=== PATIENT | female | born 1990 | race Caucasian/White ===

== ENCOUNTER → 2023-06-06 11:10 | Outpatient (CLI) | payer MEDICARE, SELFPAY ==
[2023-06-06 19:10] LABS: Basophils # 0.1 K/mm3 (0-0.2); Basophils % 0.8 % (0.1-2.0); Eosinophils # 0.3 K/mm3 (0.0-0.4); Eosinophils % 2.3 % (0.1-12.0); Hematocrit 49.6 % (37.0-47.0); Hemoglobin 15.3 g/dL (12.2-16.2); Lymphocytes # 4.1 K/mm3 (0.7-4.5); Lymphocytes % 37.4 % (10-50); Mean Corpuscular HGB Conc 30.9 g/dL (31.8-35.4); Mean Corpuscular Volume 100.4 fl (81-99); Monocytes # 0.5 K/mm3 (0.1-1.0); Monocytes % 4.7 % (1.7-9.3); Neutrophils # 6.1 K/mm3 (1.8-7.8); Neutrophils % 54.8 % (37.0-80.0); Platelet Count 543 K/mm3 (142-424); Red Blood Count 4.94 M/mm3 (4.20-5.40); Red Cell Distribution Width 13.5 % (11.5-17.5); White Blood Count 11.1 K/mm3 (4.8-10.8)
[2023-06-06 19:23] LABS: Alanine Aminotransferase 71 U/L (12-78); Albumin Level 4.5 g/dl (3.5-5.0); Albumin/Globulin Ratio 1.4 (1.1-1.8); Alkaline Phosphatase 63 U/L (38-126); Aspartate Amino Transferase 56 U/L (14-36); Bilirubin,Total 0.2 mg/dl (0.2-1.3); Blood Urea Nitrogen 13 mg/dl (7-17); Calcium 9.7 mg/dl (8.4-10.2); Carbon Dioxide 27 mmol/L (22.0-30.0); Chloride 101 mmol/L (98-107); Estimated Glomerular Filt Rate 84 ml/min (>60); GFR (African American) 101 ML/MIN (>60); Globulin 3.3 g/dL (1.3-3.2); Glucose 89 mg/dl (74-100); Sodium 138 mmol/L (136-145); Total Protein,Serum 7.8 g/dl (6.3-8.2)
[2023-06-06 19:50] LABS: Thyroid Stimulating Hormone 2.62 uIU/mL (0.465-4.68)
[2023-06-06 20:10] LABS: Vitamin B12 883 pg/mL (239-931)
== END ==
PROVIDERS: PCP Nurse Practitioner; Visit Provider Nurse Practitioner
DX: F31.9 Bipolar disorder, unspecified (principal); R40.0 Somnolence; R60.0 Localized edema
CPT/HCPCS: 85025

== ENCOUNTER → 2023-06-07 13:55 | Outpatient (CLI) | payer MEDICARE, SELFPAY ==
--- NOTE | 2023-06-07 13:56 | US_ITS ---
PROCEDURE INFORMATION: Exam: US Right Breast, Complete MG Right Diagnostic Breast Tomosynthesis Exam date and time: 06/07/2023 2:23 PM Age: 33 years old Clinical indication: Right breast palpable lump; Neoplasm of uncertain behavior of right chest wall TECHNIQUE: Imaging protocol: Complete ultrasound of all four quadrants of the right breast and the retroareolar regions, including ultrasound of the axilla when performed. Right Diagnostic tomosynthesis and 2D mammography including computer-aided detection (CAD) when performed. Unilateral or bilateral exam. COMPARISON: MG MM DIG MAMM DX UNILAT RT CAD 06/07/2023 1:52 PM FINDINGS: MAMMOGRAPHY: The breast tissue is composed of scattered areas of fibroglandular density. There is no stellate mass, architectural distortion or suspicious microcalcifications to suggest malignancy. No skin thickening or axillary adenopathy. ULTRASOUND: Sonographic images of the right breast including the retroareolar region, all 4 quadrants and the axilla do not demonstrate any solid masses. Specifically, there are no focal findings in the right 1 o'clock axis 10 cm from the nipple where the patient reports a palpable abnormality. Predominantly adipose tissue is identified. It has a dental 0.4 cm cyst in the right 3 o'clock axis 2 cm from the nipple. No architectural distortion or acoustical shadowing. No skin thickening or axillary adenopathy. IMPRESSION: Palpable abnormality in the right breast corresponds both mammographically and sonographically to normal fibroglandular structures. There is no mammographic evidence of malignancy. Further evaluation of a palpable abnormality should be based on clinical grounds regardless of radiographic findings or lack thereof. Annual bilateral mammographic screening is recommended to commence at the age of 40 unless otherwise clinically indicated. ASSESSMENT: BI-RADS Category 2: Benign
== END ==
PROVIDERS: PCP Nurse Practitioner Acute Care; Visit Provider Nurse Practitioner
DX: D48.7 Neoplasm of uncertain behavior of other specified sites (principal); R92.8 Other abnormal and inconclusive findings on diagnostic imaging of breast
CPT/HCPCS: 76641; 77061; 77065; G0279

== ENCOUNTER → 2023-07-03 23:14 | Outpatient (CLI) | payer MEDICARE, SELFPAY ==
[2023-07-05 10:53] LABS: Rapid Plasma Reagin Ab Titer Non Reactive titer (NonRea<1:1)
[2023-07-05 11:14] LABS: HIV Screen 4th Generation wRfx Non Reactive (Non Reactive)
[2023-07-05 23:37] LABS: Neisseria gonorrhoeae, NAA Negative (Negative)
[2023-07-07 18:10] LABS: HBsAg Screen Negative (Negative); HCV Ab Reactive (Non Reactive); Hep A Ab, IGM Negative (Negative); Hep B Core Ab, IgM Negative (Negative)
[2023-07-11 12:20] LABS: Trichomonas Vaginalis, NAA Negative
== END ==
LOC: LAB.DROPOF 23:14
PROVIDERS: PCP Nurse Practitioner; Visit Provider Nurse Practitioner
DX: N76.0 Acute vaginitis (principal); Z11.3 Encounter for screening for infections with a predominantly sexual mode of transmission; Z72.51 High risk heterosexual behavior; Z11.4 Encounter for screening for human immunodeficiency virus [HIV]; R30.0 Dysuria; R76.0 Raised antibody titer
CPT/HCPCS: 80074; 86593; 86703; 87491; 87591; 87661; G0432

== ENCOUNTER 2023-10-04 10:06 | Emergency (ER) | payer MEDICAID, SELFPAY ==
--- NOTE | 2023-10-04 10:20 | XR_ITS ---
FINAL REPORT CLINICAL HISTORY: PAIN IN LEFT RIBS FROM COUGHING COMPARISON: None FINDINGS: 5 views of the left ribs including a PA view of the chest were obtained. There is no displaced, acute fracture identified. The visualized lungs are clear. No pneumothorax is identified. IMPRESSION: No displaced rib fracture or pneumothorax identified. Reviewed, Interpreted and Dictated by Ruben Borja III, MD Transcribed by Cheryl Christina Authenticated and [facility]
[2023-10-04 10:22] VITALS: BP 139/86; PULSE 111; RESP 18; TEMP 36.9; O2SAT 96; BMI 35.0
--- NOTE | 2023-10-04 10:35 | PC.NURSE ---
Pt went to RAD
--- NOTE | 2023-10-04 10:56 | ED_ITS ---
Discharge Plan Disposition Patient Disposition: Home, Self-Care Condition: Good Prescriptions Prescriptions: New promethazine-DM 6.25-15 mg/5 mL Syrup 5 ml PO Q6H PRN (Reason: Cough) Qty: 240 0RF methylprednisolone 4 mg Tablets,Dose Pack 4 mg PO DIRECTED 6 Days Qty: 21 0RF Rx Instructions: Take 1 pack as directed for 6 days amoxicillin-pot clavulanate 875-125 mg Tablet 1 tab PO Q12H Qty: 20 0RF guaifenesin [Mucinex] 600 mg tablet extended release 12hr 600 - 1,200 mg PO BIDP PRN (Reason: Congestion) Qty: 30 0RF No Action fluticasone propionate 50 mcg/actuation spray,suspension 1 spray intranasal DAILY Qty: 16 2RF Rx Instructions: administer into each nostril Nurtec ODT 75 mg tablet,disintegrating 75 mg PO Q OTHER DAY PRN (Reason: migraine headache) Qty: 8 0RF hyoscyamine sulfate 0.125 mg tablet 0.125 mg PO QID PRN (Reason: diarrhea or abdominal cramping) Qty: 30 0RF lamotrigine 200 mg tablet 200 mg PO DAILY fluoxetine [Prozac] 40 mg capsule 40 mg PO DAILY trazodone 100 mg tablet 100 mg PO HS PRN tizanidine 2 mg capsule 2 mg PO Q8H PRN (Reason: muscle spasticity) Qty: 30 2RF hydrochlorothiazide 25 mg tablet 25 mg PO DAILY Qty: 30 2RF Referrals Follow up/Referrals: Mable Rodriguez APRN [Primary Care Provider] - See instructions Activity Restrictions/Add. Instructions Additional Instructions/Restrictions: Drink plenty of fluids. Take tylenol or ibuprofen for pain or fever. Take the medications as directed. Follow up with your regular doctor. GO TO THE ER FOR ANY WORSENING SYMPTOMS The cough medication (promethazine dm) will make you drowsy, so don't drive or operate heavy machinery after taking it. Clinical Impressions Clinical Impression: Acute bronchitis Instructions Patient Instructions: Acute Bronchitis, DI for Acute Bronchitis Discharge ED Provider: Davis Hobbs [facility] HPI General Stated complaint: cough, soa and back pain Mode of Arrival: Ambulatory Source of Information: Patient Limitations: No Limitations Time Seen by Provider: 10/04/23 10:56 Description of Symptoms (Recalled from Triage Doc. by RN): Pt's symptoms are productive cough, and left sided rib pain from coughing. HEENT Symptoms (Recalled from RN notes): Yes Resp Symptoms (Recalled from RN notes): No Skin Symptoms (Recalled from RN notes): No MS Symptoms (Recalled from RN notes): No Functional Status (Recalled from RN notes): n/a History of Present Illness Provider Complaint: She states that she has had a productive cough. She states that she has cough so much that she is having right lower rib pain. She denies any fever/chills/body aches. Related Data Home Medications Medication Instructions Recorded Confirmed fluoxetine 40 mg capsule (Prozac) 40 mg PO DAILY 05/31/23 10/04/23 lamotrigine 200 mg tablet 200 mg PO DAILY 05/31/23 10/04/23 trazodone 100 mg tablet 100 mg PO HS PRN 05/31/23 08/02/23 Previous Rx's Medication Instructions Recorded hydrochlorothiazide 25 mg tablet 25 mg PO DAILY #30 tabs 05/31/23 tizanidine 2 mg capsule 2 mg PO Q8H PRN muscle spasticity 05/31/23 #30 caps fluticasone propionate 50 1 spray intranasal DAILY #16 grams 08/02/23 mcg/actuation nasal spray,suspension hyoscyamine sulfate 0.125 mg tablet 0.125 mg PO QID PRN diarrhea or 08/02/23 abdominal cramping #30 tabs rimegepant 75 mg disintegrating 75 mg PO Q OTHER DAY PRN migraine 08/02/23 tablet (Nurtec ODT) headache #8 tabs amoxicillin 875 mg-potassium 1 tab PO Q12H #20 tabs 10/04/23 clavulanate 125 mg tablet guaifenesin 600 mg tablet, 600 - 1,200 mg PO BIDP PRN 10/04/23 extended release 12 hr (Mucinex) Congestion #30 tabs methylprednisolone 4 mg tablets in 4 mg PO DIRECTED 6 days #21 tabs 10/04/23 a dose pack promethazine-DM 6.25 mg-15 mg/5 mL 5 ml PO Q6H PRN Cough #240 mL 10/04/23 oral syrup Allergies Allergy/AdvReac Type Severity Reaction Status Date / Time atorvastatin Allergy Verified 10/04/23 10:32 Worker's Comp Is this a Worker's Comp case?: No [facility] Disclaimer: The information contained in this section may have been updated after the patient was seen, as this information can be updated by other users. Medical History (Updated 10/04/23 @ 11:33 by Davis Hobbs APRN) ADHD Anxiety Bilateral lower extremity edema Bipolar affective disorder Depression Has daytime drowsiness History of hepatitis C Megacolon Snoring Witnessed apneic spells Surgical History History of colonoscopy (~2020) Hx of wisdom tooth extraction Family History Mother Alcoholism Substance abuse FHx: mental illness Father Alcoholism Diabetes Social History Smoking Status: Current every day smoker alcohol intake: current current occupational status: unemployed Travel in the last 8 weeks: Inside the [place] ROS Obtained: Yes All systems reviewed & no additional complaints except as documented Constitutional Constitutional: Reports poor appetite Eyes Eyes: Reports system reviewed and no additional complaints, except as documented ENT Ears, Nose, Mouth, and Throat: Reports as per HPI Cardiovascular Cardiovascular: Reports system reviewed and no additional complaints, except as documented and Denies chest pain Respiratory Respiratory: Denies shortness of breath, Reports chest congestion, Reports cough, Denies stridor and Denies wheezing Gastrointestinal Gastrointestingal: Reports system reviewed and no additional complaints, except as documented; Denies abdominal pain, diarrhea or vomiting Musculoskeletal Musculoskeletal: Reports system reviewed and no additional complaints, except as documented and Denies arthralgias Integumentary/Breasts Skin/Breast: Reports system reviewed and no additional complaints, except as documented and Denies rash Neurologic Neurologic: Denies paresthesias Allergic/Immunologic Allergic/Immunologic: Denies wheezing Physical Exam General General appearance: alert and in no apparent distress Eye Eye exam: Present normal appearance, PERRL and EOMI ENT ENT exam: Present mucous membranes moist and normal external ear exam Expanded ENT Exam External ear exam: Present normal external inspection TM/Canal exam: Bilateral TM: erythema and bulging Nose exam: Absent sinus tenderness Nasal speculum exam: Bilateral: normal Mouth exam: Present normal external inspection; Absent drooling Teeth exam: Present normal inspection Throat exam: Present tonsillar erythema and tonsillomegaly Neck Neck exam: Present normal inspection, full ROM and trachea midline; Absent tenderness, lymphadenopathy or thyromegaly Chest Chest inspection: Present normal inspection and symmetric chest wall rise; Absent tenderness or rash Respiratory Respiratory exam: Present normal lung sounds bilaterally; Absent respiratory distress, wheezes, stridor or accessory muscle use Cardiovascular Cardiovascular exam: Present regular rate, normal rhythm and normal heart sounds Abdominal Exam Abdominal exam: Present soft; Absent distention, tenderness, guarding, rebound or rigidity Extremities Exam Extremities exam: Present normal inspection, full ROM and normal capillary refill; Absent tenderness or calf tenderness Back Exam Back exam: Present normal inspection and full ROM; Absent tenderness Neurological Exam Neurological exam: Present alert and oriented X3 Psychiatric Psychiatric exam: Present normal affect and normal mood Skin Skin exam: Present warm, dry, intact and normal color Lymphatic Lymphatic Findings: no adenopathy Medical Decision Making Medical Records Medical records reviewed: No I reviewed the patient's medical records. Steve Inquiry Pt receiving controlled substance: No Vital Signs: 10/04/23 10:22 Temperature 98.4 F Temperature Source Oral Pulse Rate [Right Radial] 111 H Respiratory Rate 18 Blood Pressure [Right Arm] 139/86 Blood Pressure Mean [Right Arm] 103 Blood Pressure Source [Right Arm] Automatic Cuff Blood Pressure Position [Right Arm] Sitting 02 Sat by Pulse Oximetry 96 Oxygen Delivery Method Room Air Orders (Tests/Meds): ORDERS Category Date Time Status XR ribs LT min 3V w CXR1V Stat Exams 10/04/23 10:20 Taken Radiology Data #1: Image(s): Chest Image Reviewed: Yes I reviewed the patient's radiology image and Yes I have reviewed radiologist's interpretation Preliminary Findings: No Infiltrates Seen
[2023-10-04 11:36] LABS: UTC Influenza A Antigen Negative (Negative); UTC Influenza B Antigen Negative (Negative)
[2023-10-04 11:49] VITALS: BP 139/86; PULSE 111; RESP 18; TEMP 36.9; O2SAT 96
== END 2023-10-04 11:49 | disposition home or self-care (01) ==
PROVIDERS: Emergency Provider Nurse Practitioner Family; PCP Nurse Practitioner Family
DX: J20.9 Acute bronchitis, unspecified (principal); R07.81 Pleurodynia; R06.02 Shortness of breath; R05.8 Other specified cough; F17.210 Nicotine dependence, cigarettes, uncomplicated
CPT/HCPCS: 71101; 87635; 87804; 99204; 99212; G0463

== ENCOUNTER 2023-10-09 09:10 | Emergency (ER) | payer MEDICAID, SELFPAY ==
[2023-10-09 09:11] VITALS: BP 135/84; PULSE 113; RESP 20; TEMP 36.8; O2SAT 97; BMI 35.0
--- NOTE | 2023-10-09 09:35 | XR_ITS ---
FINAL REPORT TECHNIQUE: Chest PA & Lateral CLINICAL HISTORY: L chest pain, worse w coughing, SOA COMPARISON: 10/04/2023 FINDINGS: 2 views of the chest were performed. The heart size is normal. The mediastinum is within normal limits. There is no acute cardiopulmonary process. There are no pleural effusions. There is no pneumothorax. The bony thorax appears intact. IMPRESSION: No acute cardiopulmonary process. Reviewed, Interpreted and Dictated by Vipin Farmer MD Transcribed by Lexie Mccrary Authenticated and [facility]
--- NOTE | 2023-10-09 09:35 | PC.NURSE ---
DR REINOSO AT BEDSIDE
[2023-10-09 09:47] LABS: Chloride 103 mmol/L (98-107)
[2023-10-09] MEDS: KETOROLAC 30MG/ML VIAL 15 MG IV (09:47)
[2023-10-09 09:48] LABS: Basophils # 0.1 K/mm3 (0-0.2); Basophils % 0.9 % (0.1-2.0); Eosinophils # 0.5 K/mm3 (0.0-0.4); Eosinophils % 4.3 % (0.1-12.0); Hematocrit 46.7 % (37.0-47.0); Hemoglobin 15.5 g/dL (12.2-16.2); Lymphocytes # 3.7 K/mm3 (0.7-4.5); Lymphocytes % 33.1 % (10-50); Mean Corpuscular HGB Conc 33.2 g/dL (31.8-35.4); Mean Corpuscular Hemoglobin 33.3 pg (27.0-31.2); Mean Corpuscular Volume 100.3 fl (81-99); Mean Platelet Volume 8.2 fl (7.4-10.4); Monocytes # 0.6 K/mm3 (0.1-1.0); Monocytes % 5.6 % (1.7-9.3); Neutrophils # 6.3 K/mm3 (1.8-7.8); Neutrophils % 56.1 % (37.0-80.0); Platelet Count 412 K/mm3 (142-424); Red Blood Count 4.66 M/mm3 (4.20-5.40); Red Cell Distribution Width 13.5 % (11.5-17.5); Sodium 138 mmol/L (136-145); White Blood Count 11.2 K/mm3 (4.8-10.8)
[2023-10-09] MEDS: LIDOCAINE 5% TRANSDERMAL PATCH 1 EACH TP (09:48)
[2023-10-09] MEDS: ACETAMINOPHEN 500MG TAB 1000 MG PO (09:48)
[2023-10-09] MEDS: diazePAM 5MG TABLET 5 MG PO (09:48)
--- NOTE | 2023-10-09 09:48 | ED_ITS ---
Discharge Plan Disposition Patient Disposition: Home, Self-Care Condition: Good Prescriptions Prescriptions: New naproxen 500 mg tablet 500 mg PO BID PRN (Reason: pain) Qty: 20 0RF lidocaine [Lidoderm] 5 % adhesive patch,medicated 1 patch topical DAILY Qty: 15 0RF Rx Instructions: leave on most painful area for up to 12 hrs No Action fluticasone propionate 50 mcg/actuation spray,suspension 1 spray intranasal DAILY Qty: 16 2RF Rx Instructions: administer into each nostril Nurtec ODT 75 mg tablet,disintegrating 75 mg PO Q OTHER DAY PRN (Reason: migraine headache) Qty: 8 0RF hyoscyamine sulfate 0.125 mg tablet 0.125 mg PO QID PRN (Reason: diarrhea or abdominal cramping) Qty: 30 0RF lamotrigine 200 mg tablet 200 mg PO DAILY fluoxetine [Prozac] 40 mg capsule 40 mg PO DAILY trazodone 100 mg tablet 100 mg PO HS PRN tizanidine 2 mg capsule 2 mg PO Q8H PRN (Reason: muscle spasticity) Qty: 30 2RF hydrochlorothiazide 25 mg tablet 25 mg PO DAILY Qty: 30 2RF promethazine-DM 6.25-15 mg/5 mL Syrup 5 ml PO Q6H PRN (Reason: Cough) Qty: 240 0RF methylprednisolone 4 mg Tablets,Dose Pack 4 mg PO DIRECTED 6 Days Qty: 21 0RF Rx Instructions: Take 1 pack as directed for 6 days amoxicillin-pot clavulanate 875-125 mg Tablet 1 tab PO Q12H Qty: 20 0RF guaifenesin [Mucinex] 600 mg tablet extended release 12hr 600 - 1,200 mg PO BIDP PRN (Reason: Congestion) Qty: 30 0RF Referrals Follow up/Referrals: Provider,Referral, MD [Primary Care Provider] - See instructions Activity Restrictions/Add. Instructions Additional Instructions/Restrictions: You were evaluated in the emergency department today. 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 You may also take Tylenol as well as your tizanidine that you have at home. Follow-up with your primary care provider over the next 3 days. Return to the emergency department for new or worsening symptoms. Clinical Impressions Clinical Impression: Left-sided chest wall pain Instructions Patient Instructions: DI for Costochondritis, DI for Acute Pain -- Adult Discharge ED Provider: Radha Lombardi General Adult HPI General Chief complaint: PAIN Stated complaint: left side pain sob Time Seen by Provider: 10/09/23 09:19 Mode of Arrival: Ambulatory Source of Information: Patient Limitations: No Limitations Description of Symptoms (Recalled from ER Triage Doc. by RN): Patient states she was here 5 days ago for back pain and SOA. Was diagnosed with bronchitis and treated with antibiotics. Patient states she was coughing last night and heard something pop and had sharp pain in her left side that radiates into back. History of Present Illness HPI narrative: This patient is a 33-year-old female with a history of hepatitis C presenting to the emergency department for evaluation with concern for left-sided chest wall pain. Patient reports that she has been sick with bronchitis for about 2 weeks, but on 10/04 she had a coughing episode and felt like something exploded in her left chest wall. She went to urgent treatment center and had x-rays done, which did not demonstrate any acute concerns on my interpretation. She was prescribed antibiotics, steroids, and cough medication for presumed bronchitis. She states that she is also been taking tizanidine and Tylenol at home for pain and muscle spasms. Last night, her pain got significantly worse with coughing. She denies any recent traumatic injuries or falls. She denies any other concerns at this time. Her symptoms get worse with any movement and with breathing. Of note, she does smoke and vape. Related Data Home Medications Medication Instructions Recorded Confirmed fluoxetine 40 mg capsule (Prozac) 40 mg PO DAILY 05/31/23 10/04/23 lamotrigine 200 mg tablet 200 mg PO DAILY 05/31/23 10/04/23 trazodone 100 mg tablet 100 mg PO HS PRN 05/31/23 08/02/23 Previous Rx's Medication Instructions Recorded hydrochlorothiazide 25 mg tablet 25 mg PO DAILY #30 tabs 05/31/23 tizanidine 2 mg capsule 2 mg PO Q8H PRN muscle spasticity 05/31/23 #30 caps fluticasone propionate 50 1 spray intranasal DAILY #16 grams 08/02/23 mcg/actuation nasal spray,suspension hyoscyamine sulfate 0.125 mg tablet 0.125 mg PO QID PRN diarrhea or 08/02/23 abdominal cramping #30 tabs rimegepant 75 mg disintegrating 75 mg PO Q OTHER DAY PRN migraine 08/02/23 tablet (Nurtec ODT) headache #8 tabs amoxicillin 875 mg-potassium 1 tab PO Q12H #20 tabs 10/04/23 clavulanate 125 mg tablet guaifenesin 600 mg tablet, 600 - 1,200 mg PO BIDP PRN 10/04/23 extended release 12 hr (Mucinex) Congestion #30 tabs methylprednisolone 4 mg tablets in 4 mg PO DIRECTED 6 days #21 tabs 10/04/23 a dose pack promethazine-DM 6.25 mg-15 mg/5 mL 5 ml PO Q6H PRN Cough #240 mL 10/04/23 oral syrup lidocaine 5 % topical patch 1 patch topical DAILY #15 ea 10/09/23 (Lidoderm) naproxen 500 mg tablet 500 mg PO BID PRN pain #20 tabs 10/09/23 Allergies Allergy/AdvReac Type Severity Reaction Status Date / Time atorvastatin Allergy Verified 10/04/23 10:32 [facility] Disclaimer: The information contained in this section may have been updated after the patient was seen, as this information can be updated by other users. Medical History ADHD Anxiety Bilateral lower extremity edema Bipolar affective disorder Depression Has daytime drowsiness History of hepatitis C Megacolon Snoring Witnessed apneic spells Surgical History History of colonoscopy (~2020) Hx of wisdom tooth extraction Family History Mother Alcoholism Substance abuse FHx: mental illness Father Alcoholism Diabetes Social History Smoking Status: Current every day smoker alcohol intake: current current occupational status: unemployed Travel in the last 8 weeks: Inside the [place] ROS Obtained: Yes All systems reviewed & no additional complaints except as documented Physical Exam General General appearance: alert and in no apparent distress Head Head exam: atraumatic and normocephalic Eye Eye exam: Present normal appearance, PERRL and EOMI ENT ENT exam: Present normal exam, normal oropharynx, mucous membranes moist and normal external ear exam Neck Neck exam: Present normal inspection, full ROM and trachea midline; Absent tenderness Chest Chest inspection: Present symmetric chest wall rise and tenderness (Left chest wall) Respiratory Respiratory exam: Present normal lung sounds bilaterally; Absent respiratory distress, wheezes, stridor or accessory muscle use Cardiovascular Cardiovascular exam: Present regular rate and normal rhythm Abdominal Exam Abdominal exam: Present soft; Absent distention, tenderness or guarding Extremities Exam Extremities exam: Present normal inspection, full ROM and normal capillary refill; Absent tenderness or edema Back Exam Back exam: Present normal inspection and full ROM; Absent tenderness Neurological Exam Neurological exam: Present alert, oriented X3, CN II-XII intact and normal gait; Absent motor sensory deficit Psychiatric Psychiatric exam: Present normal affect and normal mood Skin Skin exam: Present warm and dry Medical Decision Making Medical Records Medical records reviewed: Yes I reviewed the patient's medical records. Steve Inquiry Pt receiving controlled substance: No Vital Signs: 10/09/23 09:11 10/09/23 11:04 Temperature 98.2 F 98.2 F Temperature Source Oral Oral Pulse Rate 88 Pulse Rate [Right] 113 H Respiratory Rate 20 18 Blood Pressure 146/69 H Blood Pressure [Right Arm] 135/84 Blood Pressure Mean [Right Arm] 101 Blood Pressure Source Automatic Cuff Blood Pressure Source [Right Arm] Automatic Cuff Blood Pressure Position Sitting 02 Sat by Pulse Oximetry 97 Oxygen Delivery Method Room Air Room Air Lab Data Lab results reviewed: Yes I reviewed the patient's lab results. Lab Results 10/09/23 09:15: WBC 11.2 H, RBC 4.66, Hgb 15.5, Hct 46.7, MCV 100.3 H, MCH 33.3 H, MCHC 33.2, RDW 13.5, Plt Count 412, MPV 8.2, Neut % (Auto) 56.1, Lymph % (Auto) 33.1, [place] % (Auto) 5.6, Eos % (Auto) 4.3, Baso % (Auto) 0.9, Neut # (Auto) 6.3, Lymph # (Auto) 3.7, [place] # (Auto) 0.6, Eos # (Auto) 0.5 H, Baso # (Auto) 0.1, D-Dimer 0.50, Sodium 138, Potassium 4.0, Chloride 103, Carbon Dioxide 28, Anion Gap 11.0, BUN 11, Creatinine 0.70, Estimated Creat Clear 170, Estimated GFR 98, Est GFR ( Amer) 118, Glucose 111 H, Calcium 8.4, Total Bilirubin 0.5, AST 114 H, ALT 171 H, Alkaline Phosphatase 48, Total Protein 7.1, Albumin 4.0, Globulin 3.1, Albumin/Globulin Ratio 1.3, Serum HCG, Qual Negative 10/09/23 09:15 10/09/23 09:15 Orders (Tests/Meds): ED MEDICATIONS Discontinued Medications Generic Name Dose Route Start Last Admin Trade Name Ana María PRN Reason Stop Dose Admin Acetaminophen 1,000 mg 10/09/23 09:35 10/09/23 09:48 Acetaminophen 500mg Tab PO 10/09/23 09:36 1,000 mg ONCE ONE Administration Diazepam 5 mg 10/09/23 09:35 10/09/23 09:48 Diazepam 5mg Tablet PO 10/09/23 09:36 5 mg ONCE ONE Administration Ketorolac Tromethamine 30 mg 10/09/23 09:35 10/09/23 09:56 Ketorolac 30mg/Ml Vial IM 10/09/23 09:36 Not Given ONCE ONE Ketorolac Tromethamine 15 mg 10/09/23 09:37 10/09/23 09:47 Ketorolac 30mg/Ml Vial IV 10/09/23 09:38 15 mg ONCE ONE Administration Lidocaine 1 each 10/09/23 09:35 10/09/23 09:48 Lidocaine 5% Transdermal Patch TP 10/09/23 09:36 1 each ONCE ONE Administration ORDERS Category Date Time Status XR chest 2V Stat Exams 10/09/23 09:35 Taken Complete Blood Count Auto Diff Stat Lab 10/09/23 09:15 Completed Comprehensive Metabolic Panel Stat Lab 10/09/23 09:15 Completed D-Dimer Stat Lab 10/09/23 09:15 Completed HCG Qualitative, Serum Stat Lab 10/09/23 09:15 Completed ECG Data Tracing #1: I reviewed this ECG and interpreted as documented below: Normal sinus rhythm with a ventricular rate of [address] changes concerning for ischemia. Moderate intraventricular conduction delay. ECG initial impression date: 10/09/23 ECG initial impression time: 10:22 Medical Decision Narrative: In summary, this patient is a 33-year-old female presenting to the Emergency Department for evaluation of left-sided pleuritic chest pain that is worse with movement. Differential diagnoses considered include but are not limited to costochondritis, musculoskeletal strain/sprain, pleurisy, PE, pneumothorax. Ruling out the most morbid conditions drove assessment. On exam, the patient has reproducible pain with tenderness to palpation of the left chest wall. Exam is otherwise reassuring. Workup included CBC, CMP, D- dimer, chest x-ray, and EKG. She was given oral Tylenol, Valium, IV Toradol, and a topical Lidoderm patch for symptomatic improvement. I independently interpreted x-ray prior to the radiologist read and noted pneumothorax, focal consolidation, or other concerns. Please see their read for final interpretation. Labs were obtained that demonstrated no acutely concerning abn ormalities with negative D-dimer. On reassessment, patient had good improvement after administration of medications as above. She complains of continued mild pain, though it is improved.. At this time, patient was deemed to be appropriate for discharge with instructions for supportive management of musculoskeletal chest wall pain. The patient was given instructions for close outpatient follow-up, very strict return precautions, and the patient was discharged in stable condition with prescriptions for Lidoderm patch and naproxen. Critical Care Critical Care Time Critical Care Time: No
[2023-10-09 09:50] LABS: Alanine Aminotransferase 171 U/L (12-78); Aspartate Amino Transferase 114 U/L (14-36); Blood Urea Nitrogen 11 mg/dl (7-17); Creatinine Clearance Estimated 170 mL/min (50-200); Estimated Glomerular Filt Rate 98 ml/min (>60); GFR (African American) 118 ML/MIN (>60)
[2023-10-09 09:51] LABS: Albumin/Globulin Ratio 1.3 (1.1-1.8); Alkaline Phosphatase 48 U/L (38-126); Bilirubin,Total 0.5 mg/dl (0.2-1.3); Calcium 8.4 mg/dl (8.4-10.2); Carbon Dioxide 28 mmol/L (22.0-30.0); Globulin 3.1 g/dL (1.3-3.2); Glucose 111 mg/dl (74-100); Total Protein,Serum 7.1 g/dl (6.3-8.2)
[2023-10-09 09:57] LABS: HCG Qualitative, Serum Negative (Negative)
--- NOTE | 2023-10-09 10:13 | PC.NURSE ---
PT TO XR
--- NOTE | 2023-10-09 10:20 | ECG_ITS ---
APPROVED REPORT Exam: Resting ECG HR:92 bpm ECG Measurements Heart Rate 92 AXES VA 142 P 55 QRSd 114 QRS 73 QT 365 T 72 QTc 414 Conclusion SINUS RHYTHM MODERATE INTRAVENTRICULAR CONDUCTION DELAY [110+ ms QRS DURATION] BORDERLINE ECG UNCONFIRMED REPORT Electronically signed by : Scott Avila MD 10/12/2023 14:48:03
--- NOTE | 2023-10-09 10:55 | PC.NURSE ---
DR REINOSO AT BEDSIDE TO UPDATE PT AND FAMILY
[2023-10-09 11:04] VITALS: BP 146/69; PULSE 88; RESP 18; TEMP 36.8; O2SAT 98
== END 2023-10-09 11:05 | disposition home or self-care (01) ==
PROVIDERS: Emergency Provider Emergency Medicine
DX: R07.89 Other chest pain (principal); R05.9 Cough, unspecified; M54.9 Dorsalgia, unspecified; J40 Bronchitis, not specified as acute or chronic; B19.20 Unspecified viral hepatitis C without hepatic coma; I45.9 Conduction disorder, unspecified; F17.200 Nicotine dependence, unspecified, uncomplicated
CPT/HCPCS: 71046; 80053; 84703; 85025; 85378; 93005; 96374; 99285

== ENCOUNTER 2024-02-22 11:31 | Outpatient (CLI) | payer MEDICAID, SELFPAY ==
[2024-02-22 12:10] LABS: Basophils # 0.1 K/mm3 (0-0.2); Eosinophils # 0.2 K/mm3 (0.0-0.4); Eosinophils % 2.1 % (0.1-12.0); Hematocrit 49.2 % (37.0-47.0); Hemoglobin 15.6 g/dL (12.2-16.2); Lymphocytes # 2.8 K/mm3 (0.7-4.5); Lymphocytes % 27.3 % (10-50); Mean Corpuscular HGB Conc 31.7 g/dL (31.8-35.4); Mean Corpuscular Hemoglobin 33.6 pg (27.0-31.2); Mean Platelet Volume 7.9 fl (7.4-10.4); Monocytes # 0.3 K/mm3 (0.1-1.0); Neutrophils # 6.9 K/mm3 (1.8-7.8); Neutrophils % 66.6 % (37.0-80.0); Platelet Count 461 K/mm3 (142-424); Red Blood Count 4.64 M/mm3 (4.20-5.40); Red Cell Distribution Width 13.7 % (11.5-17.5); White Blood Count 10.4 K/mm3 (4.8-10.8)
[2024-02-22 12:23] LABS: INR 0.98 (0.9-1.1); Prothrombin Time 10.6 seconds (10.1-12.5)
[2024-02-22 13:40] LABS: Alanine Aminotransferase 202 U/L (12-78); Albumin Level 4.7 g/dl (3.5-5.0); Albumin/Globulin Ratio 1.6 (1.1-1.8); Alkaline Phosphatase 57 U/L (38-126); Anion Gap 18.5 mEq/L (5-15); Aspartate Amino Transferase 200 U/L (14-36); Bilirubin,Total 0.7 mg/dl (0.2-1.3); Blood Urea Nitrogen 9 mg/dl (7-17); Carbon Dioxide 24 mmol/L (22.0-30.0); Chloride 101 mmol/L (98-107); Estimated Glomerular Filt Rate 84 ml/min (>60); GFR (African American) 101 ML/MIN (>60); Glucose 143 mg/dl (74-100); Potassium 4.5 mmoL/L (3.5-5.1); Sodium 139 mmol/L (136-145); Total Protein,Serum 7.7 g/dl (6.3-8.2)
[2024-02-23 10:48] LABS: AFP, Tumor Marker 2.9 ng/mL (0.0-6.4)
[2024-02-27 11:42] LABS: Fibrosis Score 0.17; Fibrosis Stage F0-NO FIBROSIS; Necroinflammat Activity Score 0.77
[2024-02-27 11:43] LABS: Alpha 2-Macroglobulins, Qn 156; Apolipoprotein A-1 130; Bilirubin, Total 0.4; Haptoglobin 143
[2024-02-27 11:44] LABS: ALT (SGPT) P5P 198; GGT 272
== END 2024-02-22 23:59 | disposition home or self-care (01) ==
LOC: LAB 11:33
PROVIDERS: PCP Nurse Practitioner; Visit Provider Nurse Practitioner
DX: Z86.19 Personal history of other infectious and parasitic diseases (principal); K59.39 Other megacolon; F10.20 Alcohol dependence, uncomplicated; F11.90 Opioid use, unspecified, uncomplicated
CPT/HCPCS: 36415; 80053; 81596; 82105; 85025; 85610

== ENCOUNTER 2024-07-20 16:19 | Emergency (ER) | payer MEDICAID, SELFPAY ==
[2024-07-20] VITALS (10 sets, daily range): BP systolic 138–147; BP diastolic 76–93; PULSE 74–100; RESP 13–20; TEMP 36.8; O2SAT 96–98; BMI 37.8
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
[2024-07-20] MEDS: ONDANSETRON 4MG/2ML VIAL 4 MG IV (17:26)
[2024-07-20] MEDS: 0.9 % SODIUM CHLORIDE 1000ML 1,000 ML 999 ML IV (17:26)
[2024-07-20 17:30] LABS: Coronavirus 19, PCR Not Detected (NotDetected); Influenza A, PCR Not Detected (NotDetected); Influenza B, PCR Not Detected (NotDetected)
[2024-07-20 17:31] LABS: Basophils # 0.1 K/mm3 (0-0.2); Basophils % 1.3 % (0.1-2.0); Eosinophils # 0.2 K/mm3 (0.0-0.4); Hematocrit 46.5 % (37.0-47.0); Hemoglobin 15.1 g/dL (12.2-16.2); Lymphocytes # 3.1 K/mm3 (0.7-4.5); Lymphocytes % 28.9 % (10-50); Mean Corpuscular HGB Conc 32.6 g/dL (31.8-35.4); Mean Corpuscular Hemoglobin 31.9 pg (27.0-31.2); Mean Corpuscular Volume 97.9 fl (81-99); Mean Platelet Volume 7.6 fl (7.4-10.4); Monocytes # 0.6 K/mm3 (0.1-1.0); Monocytes % 5.2 % (1.7-9.3); Neutrophils # 6.8 K/mm3 (1.8-7.8); Neutrophils % 62.6 % (37.0-80.0); Platelet Count 448 K/mm3 (142-424); Red Blood Count 4.75 M/mm3 (4.20-5.40); Red Cell Distribution Width 14.4 % (11.5-17.5); White Blood Count 10.9 K/mm3 (4.8-10.8)
[2024-07-20 17:41] LABS: Albumin Level 4.7 g/dl (3.5-5.0); Chloride 103 mmol/L (98-107); Sodium 139 mmol/L (136-145)
[2024-07-20 17:44] LABS: Alanine Aminotransferase 288 U/L (12-78); Albumin/Globulin Ratio 1.4 (1.1-1.8); Alkaline Phosphatase 53 U/L (38-126); Aspartate Amino Transferase 300 U/L (14-36); Bilirubin,Total 0.5 mg/dl (0.2-1.3); Blood Urea Nitrogen 13 mg/dl (7-17); Carbon Dioxide 26 mmol/L (22.0-30.0); Creatinine Clearance Estimated 159 mL/min (50-200); Estimated Glomerular Filt Rate 83 ml/min (>60); GFR (African American) 101 ML/MIN (>60); Globulin 3.3 g/dL (1.3-3.2)
[2024-07-20 17:45] LABS: Calcium 9.3 mg/dl (8.4-10.2); Glucose 102 mg/dl (74-100); Lipase 105 U/L (23-300)
[2024-07-20 18:06] LABS: Strep Scrn Group A (Rapid) Negative (Negative)
[2024-07-20 18:28] LABS: Microscopic, Urine URINE MICROSCOPIC (MICROSCOPIC)
[2024-07-20 18:30] LABS: Appearance,Urine CLEAR (Clear); Blood, Urine Negative (Negative); Color,Urine YELLOW (Yellow); Glucose,Urine (UA) Negative (Negative); Ketones,Urine Negative (Negative); Leukocyte Esterase,Urine Negative (Negative); Nitrate,Urine Negative (Negative); Protein,Urine Negative (Negative); Specific Gravity, Urine >= 1.030 (1.005-1.030)
[2024-07-20 18:34] LABS: Urine Pregnancy, HCG Qual. Negative (Negative)
[2024-07-20 18:57] LABS: Bilirubin,Urine 1+ (Negative)
[2024-07-20] MEDS: ACETAMINOPHEN 500MG TAB 1000 MG PO (19:23)
--- NOTE | 2024-07-20 19:26 | PC.NURSE ---
rounded on pt on shift change. sarbjit labs at this time. no needs reported
[2024-07-20 21:05] LABS: Bacteria,Urine Trace /lpf
[2024-07-24 14:38] LABS: HBsAg Screen Negative (Negative); HCV Ab Reactive (Non Reactive); Hep A Ab, IGM Negative (Negative); Hep B Core Ab, IgM Negative (Negative)
[2024-07-28 11:17] LABS: Hepatitis C Quant. HCV Not Detected IU/mL (.)
== END 2024-07-20 20:24 | disposition home or self-care (01) ==
PROVIDERS: Physician Assistant; Emergency Provider Student in an Organized Health Care Education/Training Program; PCP Nurse Practitioner
DX: K52.9 Noninfective gastroenteritis and colitis, unspecified (principal); Z13.818 Encounter for screening for other digestive system disorders
CPT/HCPCS: 80053; 80074; 81001; 81025; 83690; 85025; 87430; 87522; 87636; 96360; 99284; J2405; J7030

== ENCOUNTER 2024-08-06 09:23 | Outpatient (CLI) | payer MEDICAID, SELFPAY ==
--- NOTE | 2024-08-06 09:24 | US_ITS ---
FINAL REPORT CLINICAL HISTORY: Evaluate liver morphology COMPARISON: None FINDINGS: Sonographic images of the right upper quadrant were obtained. The pancreas is partially obscured. There is fatty infiltration of the liver with focal fatty sparing adjacent to the jerrica hepatis. The gallbladder appears normal without evidence of gallstones.There is no evidence of biliary ductal dilatation.The common duct measures 4mm. Limited images of the right kidney are unremarkable. IMPRESSION: Fatty liver with focal fatty sparing. Reviewed, Interpreted and Dictated by Vipin Farmer MD Transcribed by Cheryl Christina Authenticated and [facility]
== END 2024-08-06 23:59 | disposition home or self-care (01) ==
LOC: RAD 09:24
PROVIDERS: PCP Nurse Practitioner Family; Visit Provider Nurse Practitioner Family
DX: Z86.19 Personal history of other infectious and parasitic diseases (principal)
CPT/HCPCS: 76705

== ENCOUNTER 2024-08-26 14:00 | Outpatient (CLI) | payer MEDICAID, SELFPAY ==
[2024-08-26 18:26] LABS: Adenovirus,PCR Not Detected (NotDetected); Bordetella Pertussis Not Detected (NotDetected); Chlamydophila Pneumoniae, PCR Not Detected (NotDetected); Coronavirus 19, PCR Not Detected (NotDetected); Coronavirus 229E Not Detected (NotDetected); Coronavirus NL63 Not Detected (NotDetected); Coronavirus OC43 Not Detected (NotDetected); Coronovirus HKU1,PCR Not Detected (NotDetected); Human Metapneumovirus Not Detected (NotDetected); Influenza A, PCR Not Detected (NotDetected); Influenza AH1, 2009 Not Detected (NotDetected); Influenza AH1, PCR Not Detected (NotDetected); Influenza AH3,PCR Not Detected (NotDetected); Influenza B, PCR Not Detected (NotDetected); Mycoplasma Pneumoniae, PCR Not Detected (NotDetected); Parainfluenza 1, PCR Not Detected (NotDetected); Parainfluenza 2, PCR Not Detected (NotDetected); Parainfluenza 3, PCR Not Detected (NotDetected); Parainfluenza 4, PCR Not Detected (NotDetected); Respiratory Syncytial Virus Not Detected (NotDetected)
[2024-08-26 23:16] LABS: Rhinovirus/Enterovirus Detected (NotDetected)
== END 2024-08-26 23:59 | disposition home or self-care (01) ==
LOC: LAB.DROPOF 08-27 10:48
PROVIDERS: PCP Nurse Practitioner; Visit Provider Nurse Practitioner
DX: J06.9 Acute upper respiratory infection, unspecified (principal); J40 Bronchitis, not specified as acute or chronic; R05.9 Cough, unspecified; R06.2 Wheezing; Z72.0 Tobacco use
CPT/HCPCS: 87633

== ENCOUNTER 2024-09-16 10:10 | Outpatient (CLI) | payer MEDICAID, SELFPAY ==
[2024-09-16 11:07] LABS: Albumin Level 4.2 g/dl (3.5-5.0); Chloride 103 mmol/L (98-107); Potassium 4.8 mmoL/L (3.5-5.1); Sodium 136 mmol/L (136-145)
[2024-09-16 11:10] LABS: Alanine Aminotransferase 49 U/L (12-78); Albumin/Globulin Ratio 1.6 (1.1-1.8); Alkaline Phosphatase 46 U/L (38-126); Anion Gap 6.8 mEq/L (5-15); Aspartate Amino Transferase 46 U/L (14-36); Bilirubin,Total 0.4 mg/dl (0.2-1.3); Blood Urea Nitrogen 9 mg/dl (7-17); Carbon Dioxide 31 mmol/L (22.0-30.0); Estimated Glomerular Filt Rate 83 ml/min (>60); GFR (African American) 101 ML/MIN (>60); Globulin 2.6 g/dL (1.3-3.2); Iron 94 ug/dL (37-170); Total Protein,Serum 6.8 g/dl (6.3-8.2)
[2024-09-16 11:11] LABS: Calcium 9.6 mg/dl (8.4-10.2); Glucose 92 mg/dl (74-100)
[2024-09-16 11:20] LABS: Total Iron Binding Capacity 354 ug/dL (265-497)
[2024-09-16 11:46] LABS: Ferritin 34.4 ng/ml (6.24-137)
[2024-09-16 14:21] LABS: Vitamin B12 754 pg/mL (239-931)
[2024-09-16 14:27] LABS: Folate 6.36 ng/mL
[2024-09-17 08:11] LABS: Alpha-1-Antitrypsin 180 mg/dL (100-188)
[2024-09-18 15:08] LABS: Actin (Smooth Muscle) Antibody 6 Units (0-19); Mitochondrial (M2) Antibody <20.0 Units (0.0-20.0)
[2024-09-19 10:14] LABS: Vitamin B1 135.1 nmol/L (66.5-200.0)
== END 2024-09-16 23:59 | disposition home or self-care (01) ==
LOC: LAB 10:11
PROVIDERS: PCP Nurse Practitioner; Visit Provider Nurse Practitioner Family
DX: F10.11 Alcohol abuse, in remission (principal); Z68.35 Body mass index [BMI] 35.0-35.9, adult; E66.9 Obesity, unspecified
CPT/HCPCS: 36415; 80053; 81256; 82103; 82104; 82607; 82728; 82746; 83540; 83550; 84425; 86255; 86256

== ENCOUNTER → 2025-02-04 06:23 | Outpatient (CLI) | payer MEDICAID, SELFPAY | LOC: SL 06:24 | PROVIDERS: PCP Nurse Practitioner; Visit Provider Nurse Practitioner | DX: R06.81 Apnea, not elsewhere classified (principal); R40.0 Somnolence; R06.83 Snoring | CPT/HCPCS: G0399 ==

== ENCOUNTER 2025-05-05 15:00 | Outpatient (CLI) | payer OTHER, SELFPAY ==
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
== END 2025-05-05 23:59 | disposition home or self-care (01) ==
LOC: LAB.DROPOF 05-07 09:21
PROVIDERS: PCP Nurse Practitioner; Visit Provider Nurse Practitioner
DX: J06.9 Acute upper respiratory infection, unspecified (principal); J40 Bronchitis, not specified as acute or chronic
CPT/HCPCS: 87636

== ENCOUNTER 2025-05-06 14:00 | Outpatient (CLI) | payer OTHER, SELFPAY ==
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
[2025-05-06 19:27] LABS: Coronavirus 19, PCR Not Detected (NotDetected); Influenza A, PCR Not Detected (NotDetected); Influenza B, PCR Not Detected (NotDetected)
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
== END 2025-05-06 23:59 | disposition home or self-care (01) ==
LOC: LAB.DROPOF 05-08 13:29
PROVIDERS: PCP Nurse Practitioner; Visit Provider Nurse Practitioner
DX: J06.9 Acute upper respiratory infection, unspecified (principal)
CPT/HCPCS: 87636